=== PATIENT | female | born 1970 | race Caucasian/White ===

== ENCOUNTER → 2017-08-06 | Outpatient (CLI) | payer OTHER ==
[~2017-08-06] MED LIST: NORCO 5-325 TA1 EACH PO; ZOFRAN4 MG PO
== END ==
LOC: RAD 16:32
DX: M50.30 Other cervical disc degeneration, unspecified cervical region (principal); M51.34 Other intervertebral disc degeneration, thoracic region; M46.52 Other infective spondylopathies, cervical region